=== PATIENT | female | born 1990 | race Caucasian/White ===

== ENCOUNTER 2020-06-02 18:11 | Emergency (ER) | payer OTHER, SELFPAY ==
[~2020-06-02] VITALS: Ht 175.3 cm; Wt 108.9 kg
[2020-06-02 18:13] VITALS: Ht 175.3 cm; Wt 108.9 kg
[2020-06-02 18:30] VITALS: BP 141/91
== END 2020-06-02 18:30 | disposition home or self-care (01) ==
LOC: ED 18:11
DX: R05 Cough (principal); J02.9 Acute pharyngitis, unspecified; R09.89 Other specified symptoms and signs involving the circulatory and respiratory systems; Z20.828 Contact with and (suspected) exposure to other viral communicable diseases
CPT/HCPCS: U0003-CS